=== PATIENT | male | born 1990 | race Two or more races ===

== ENCOUNTER 2017-07-10 04:12 | Emergency (ER) | payer OTHER ==
[2017-07-10] MEDS: LIDOCAINE 1% PF 30 ML VIAL. INJ (07:00)
== END 2017-07-10 07:43 | disposition home or self-care (01) ==
LOC: ER 04:12
DX: S01.412A Laceration without foreign body of left cheek and temporomandibular area, initial encounter (principal); S01.312A Laceration without foreign body of left ear, initial encounter; S01.452A Open bite of left cheek and temporomandibular area, initial encounter; S01.352A Open bite of left ear, initial encounter; W54.0XXA Bitten by dog, initial encounter; Y93.89 Activity, other specified; Y92.89 Other specified places as the place of occurrence of the external cause; Y99.8 Other external cause status
CPT/HCPCS: 12014; 99283

== ENCOUNTER 2017-07-15 16:57 | Emergency (ER) | payer OTHER | END 2017-07-15 17:16 | disposition home or self-care (01) | LOC: ER 17:16 | DX: S01.312D Laceration without foreign body of left ear, subsequent encounter (principal); X58.XXXD Exposure to other specified factors, subsequent encounter | CPT/HCPCS: 99281 ==